=== PATIENT | female | born 1950 | race Caucasian/White ===

== ENCOUNTER 2018-05-20 13:21 | Inpatient (IN) ==
--- NOTE | 2018-05-20 13:45 | EKG Report ---
Test Performed on : 05/20/2018 1:34:59 PM Test Reason : PALPITATIONS Blood Pressure : / mmHG Vent. Rate : 117 BPM Atrial Rate : 122 BPM P-R Int : 000 ms QRS Dur : 072 ms QT Int : 336 ms P-R-T Axes : 000 013 060 degrees QTc Int : 468 ms Atrial fibrillation. with rapid ventricular response. Nonspecific T wave abnormality Abnormal ECG No previous ECGs available Unconfirmed Result
[2018-05-20] MEDS ORDERED: CARDIZEM IV ONE ×2 (14:13→14:56)
[2018-05-20 14:44] LABS: BASO# 0.02 X1000 (0.0-0.2); BASO% 0.3 % (0.0-0.8); EOS# 0.25 X1000 (0.0-0.7); EOS% 3.7 % (0.0-10.0); HEMATOCRIT 36.3 % (37.0-47.0); HEMOGLOBIN 11.5 g/dL (12.0-16.0); LYMPH% 32.9 % (20.5-51.1); MCH 23.4 PG (27-31); MCHC 31.7 g/dL (33-37); MCV 73.9 FL (81-99); MONO# 0.66 X1000 (0.11-0.59); MONO% 9.9 % (1.7-9.3); MPV 11.4 FL (7.4-10.4); NEUT# 3.55 X1000 (1.4-6.5); NEUT% 53.2 % (42.2-75.2); PLT 234 X1000 (130-400); RBC 4.91 XMIL (4.2-5.4); RDW 16.3 % (11.5-14.5); WBC 6.68 X1000 (4.8-10.8)
[2018-05-20 14:55] LABS: AGAP 11; ALB/GLOB RATIO 1.3; ALBUMIN 4.1 g/dL (3.5-5.0); ALKALINE PHOSPHATASE 110 U/L (32-104); BUN 19 mg/dL (8-22); CALCIUM 9.8 mg/dL (8.8-10.2); CHLORIDE 101 mmol/L (98-107); COSMO 276; CREATININE 0.8 mg/dL (0.5-0.9); ESTIMATED GFR > 60; GLUCOSE 94 mg/dL (70-104); GOT 36 U/L (10-30); GPT 37 U/L (10-36); POTASSIUM 4.7 mmol/L (3.5-5.1); SODIUM 137 mmol/L (136-145); TCO2 25 mmol/L (25-35); TOTAL BILIRUBIN 0.23 mg/dL (0.20-1.00); TOTAL PROTEIN 7.2 g/dL (6.3-8.3)
[2018-05-20 15:02] LABS: CK PROFILE 192 U/L (24-173)
[2018-05-20 15:19] LABS: CK INDEX 3.4 (0.0-2.5); CK-MB 6.48 ng/mL (0.0-5.0)
--- NOTE | 2018-05-20 17:22 | HISTORY AND PHYSICAL ---
HISTORY OF PRESENT ILLNESS: Ms. Nguyen was admitted on 05/20/2018. She has never been admitted here before. She reports that on Friday (today is Friday) she noticed some palpitations, really no chest pain. No shortness of breath. No diaphoresis. No arm or jaw pain, but she has a pulse oximeter, and she noticed it was irregular, so she went and saw I think Dr. Justine Mayer, and she did an EKG and found she was in atrial fibrillation/atrial flutter and sent over here to the emergency room. PAST MEDICAL HISTORY: Pretty unremarkable. They have been working up for chronic cough and wondering if she had mild asthma. She has primary hypothyroidism and apparently has gastroesophageal reflux disease. PAST SURGICAL HISTORY: Status post cholecystectomy in 1979, status post hysterectomy in 1978, status post right carpal tunnel syndrome in 1988. ALLERGIES: She is allergic to codeine which causes hallucination. FAMILY HISTORY: A lot of her family of cancer. I think it was her grandfather who of myocardial infarction. SOCIAL HISTORY: Negative for alcohol or tobacco. No illicit drugs. Her family is at the bedside. She had her , her son, and grandson. They moved from [place], I think, in the . 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 REVIEW OF SYSTEMS: General: No weight gain or loss reported. HEENT: No change in visual or hearing acuity or headaches. She has been having a chronic cough which is dry. Postnasal drainage. Neck: No neck pain or adenopathy. Respiratory: Chronic cough. No dyspnea. No paroxysmal nocturnal dyspnea. No orthopnea. Cardiovascular: No chest pain, but she did experience some palpitations, although mainly she noted the atrial fibrillation on the pulse oximeter, did not really have trouble with forceful palpitations or painful palpitations. Gastrointestinal and Genitourinary: No gross hematuria or dysuria. Neurologic: No focal complaints. Endocrinologic and hematologic: No significant history. PHYSICAL EXAMINATION: VITAL SIGNS: In the emergency room, temperature 97.7 degrees, pulse 100, respirations 24, blood pressure 154/95, O2 saturation 97% on room air. HEENT: Pupils were equal. Conjunctiva pink. NECK: No distended neck veins. Supple. No cervical adenopathy. VASCULAR: CVP less than 6 cm in the right atrium. Carotid, radial, femoral pulses 2+ and symmetrical. LUNGS: Clear anterolateral in all lung pretty. CARDIOVASCULAR: Irregular rhythm, irregular rate. PMI nondisplaced. ABDOMEN: Soft. Did not appreciate any organomegaly. No sign of ascites. No pedal edema. SKIN: Warm and dry. DIAGNOSTIC STUDIES: White count 6680, hematocrit 36 platelet count 234,000. Chemistries: Sodium 137, potassium 4.7, chloride 101, BUN 19, creatinine 0.8, blood sugar 94, AST 36, ALT was 37, alkaline phosphatase 110. CPK was 192. Troponin was less than 0.01. Albumin 4.1. TSH was 2.70. MEDICATIONS: At home, she is on esomeprazole 40 mg a day. She is on Lasix 40 mg which I think she takes as needed. Synthroid 100 mcg daily. ASSESSMENT AND PLAN: 1. New onset atrial fibrillation/atrial flutter. We will get an echo and look at her atrial size and her valvular function. I did not appreciate on exam significant mitral or aortic valve dysfunction. She has no history of left ventricular dysfunction. Does not appear to be having any cardiac ischemia. Cardiology will evaluate. I think we may go ahead and try her on some Cardizem and we will give her 30 mg of Cardizem q.6 h. and watch her on the monitor. We did check TSH, but we will check a T4 and TSH tomorrow and B12 and folate. I will check another set of cardiac enzymes, troponin and CK. We will get an EKG tonight and another one in the morning. We will not anticoagulate at this point. We will see what her echo looks like and watch her blood pressures. 2. Chronic dry cough. I think it is postnasal drip syndrome. She does not appear to have any wheezing or bronchospasm. Air and gas exchange appear to be good. 3. History of hypothyroidism. Continue her Synthroid. 4. Review of her lab. Hematocrit is 36. Electrolytes look good. She did have mild elevation of liver enzymes. It is probably worthwhile just to get a hepatitis profile, which we would check for mainly B and C. We will recheck her liver functions. We also will get a lipid profile in the morning and see what her cholesterol status is. cc: Christian Foster MD
[2018-05-20] MEDS ORDERED: ZOFRAN IV PRN (18:51)
[2018-05-20] MEDS: CARDIZEM PO SCH (20:00)
[2018-05-21] MEDS ORDERED: XANAX PO ONE (00:10)
[2018-05-21 03:38] LABS: BASO# 0.03 X1000 (0.0-0.2); BASO% 0.5 % (0.0-0.8); EOS# 0.27 X1000 (0.0-0.7); EOS% 4.3 % (0.0-10.0); HEMATOCRIT 36.3 % (37.0-47.0); HEMOGLOBIN 11.4 g/dL (12.0-16.0); IMM GRAN# 0.02 X1000 (0.0-0.04); IMM GRAN% 0.3 % (0.0-0.5); LYMPH# 2.31 X1000 (1.2-3.4); LYMPH% 36.8 % (20.5-51.1); MCH 23.2 PG (27-31); MCHC 31.4 g/dL (33-37); MCV 73.8 FL (81-99); MONO# 0.48 X1000 (0.11-0.59); MONO% 7.7 % (1.7-9.3); MPV 10.9 FL (7.4-10.4); NEUT# 3.16 X1000 (1.4-6.5); NEUT% 50.4 % (42.2-75.2); PLT 229 X1000 (130-400); RBC 4.92 XMIL (4.2-5.4); RDW 16.3 % (11.5-14.5); WBC 6.27 X1000 (4.8-10.8)
[2018-05-21] MEDS: CARDIZEM PO SCH ×5 (03:40→21:26)
[2018-05-21 03:50] LABS: AGAP 9; ALB/GLOB RATIO 1.3; ALKALINE PHOSPHATASE 107 U/L (32-104); BUN 18 mg/dL (8-22); CALCIUM 9.6 mg/dL (8.8-10.2); CHLORIDE 102 mmol/L (98-107); CHOLESTEROL 157 mg/dL (0-200); COSMO 278; CREATININE 0.9 mg/dL (0.5-0.9); ESTIMATED GFR > 60; GLUCOSE 104 mg/dL (70-104); GOT 38 U/L (10-30); GPT 37 U/L (10-36); HDL 42 mg/dL (45-65); LDL 97 mg/dL; MAGNESIUM 2.1 mg/dL (1.5-2.7); POTASSIUM 4.3 mmol/L (3.5-5.1); SODIUM 138 mmol/L (136-145); TCO2 27 mmol/L (25-35); TOTAL BILIRUBIN 0.35 mg/dL (0.20-1.00); TOTAL PROTEIN 7.1 g/dL (6.3-8.3); TRIGLYCERIDES 89 mg/dL (35-135); VLDL 18 mg/dL
[2018-05-21 04:13] LABS: CK INDEX 2.9 (0.0-2.5); CK-MB 5.33 ng/mL (0.0-5.0)
[2018-05-21] MEDS: PRILOSEC PO SCH (07:09)
--- NOTE | 2018-05-21 07:19 | Diag Imaging Result Doc PS360 ---
EXAM: CHEST-PORTABLE 05/21/2018 HISTORY: follow up TECHNIQUE: AP portable at 0531 COMMENT: There is minimal subsegmental atelectasis in the lingula. The inspiration is generally less optimal than on 01/27/2017. Otherwise there is no evidence of acute disease. IMPRESSION: Minimal subsegmental atelectasis. Electronically signed by Hubert Amos 05/21/2018 7:17 AM
--- NOTE | 2018-05-21 07:51 | EKG Report ---
Test Performed on : 05/21/2018 06:50:14 AM Test Reason : fib/flutter Blood Pressure : / mmHG Vent. Rate : 094 BPM Atrial Rate : 326 BPM P-R Int : 000 ms QRS Dur : 072 ms QT Int : 368 ms P-R-T Axes : 000 018 010 degrees QTc Int : 460 ms Atrial flutter. with variable AV block. Nonspecific T wave abnormality Abnormal ECG When compared with ECG of 20-MAY-2018 23:07, (Unconfirmed) No significant change was found Unconfirmed Result
--- NOTE | 2018-05-21 07:52 | EKG Report ---
Test Performed on : 05/20/2018 11:07:53 PM Test Reason : fib/flutter reassess Blood Pressure : / mmHG Vent. Rate : 108 BPM Atrial Rate : 315 BPM P-R Int : 000 ms QRS Dur : 078 ms QT Int : 360 ms P-R-T Axes : 000 017 036 degrees QTc Int : 482 ms Atrial flutter. with variable AV block. Nonspecific T wave abnormality Abnormal ECG When compared with ECG of 20-MAY-2018 15:41, (Unconfirmed) Nonspecific T wave abnormality, worse in Lateral leads Unconfirmed Result
--- NOTE | 2018-05-21 08:01 | EKG Report ---
Test Performed on : 05/20/2018 3:41:19 PM Test Reason : ED. NO EKG ORDER FOR MUSE Blood Pressure : / mmHG Vent. Rate : 093 BPM Atrial Rate : 330 BPM P-R Int : 000 ms QRS Dur : 068 ms QT Int : 370 ms P-R-T Axes : 089 016 014 degrees QTc Int : 460 ms Atrial flutter. with variable AV block. Abnormal ECG When compared with ECG of 20-MAY-2018 13:34, (Unconfirmed) Atrial flutter. has replaced Atrial fibrillation. Unconfirmed Result
[2018-05-21] MEDS ORDERED: ASPIRIN PO SCH (09:00)
[2018-05-21] MEDS: LOPRESSOR PO SCH ×3 (09:13→16:19)
--- NOTE | 2018-05-21 09:16 | CARDIOLOGY CONSULTATION ---
DATE: 05/21/2018 CONSULTATION REQUESTED BY: The Hospitalist Service. REASON: Patient with new onset atrial fibrillation. Uncertain duration, rapid response, symptomatic. Chief complaint: palpitations. HISTORY: Ms. Nguyen is a 67-year-old female, who was in her usual state of health up until Friday which is 2 days ago at about 10:15 in the morning. She was doing her usual activities and all of a sudden, she started feeling palpitations. This went on throughout the day. There were no associated symptoms of dizziness, dyspnea or swelling. The next day, Friday she went to see her doctor, Dr. Gila Mayer who found her to be tachycardic with an irregular pulse and EKG showed atrial fibrillation. She was referred to the emergency room department for management. In the ER, they have done blood work that shows a hemoglobin of 11.5, hematocrit 36.3, MCV of 73.9. Her BUN and creatinine normal. Her AST and ALT are slightly elevated however she has had this before. Her LDL cholesterol 97, HDL was 42, cholesterol 157, triglycerides 89. TSH was normal. A chest x-ray done initially has been reported as showing minimal subsegmental atelectasis. Her EKG in the ER shows what appears to be atrial fibrillation with rapid response. Then this morning at 6:50, she has something that looks more like coarse atrial fibrillation stimulating flutter. I do not think it is atrial flutter. At any rate, the patient feels better. She has been given Cardizem. Right now, they have put her on diltiazem, aspirin and she is awaiting some testing. She is just laying in bed, feeling comfortable. She has no further complaints. PAST HISTORY: Positive only for restless legs syndrome, hypothyroidism. Apparently she has been found to have abnormal liver function tests in the past and it seems like they have already tested her for hepatitis C which turned out to be negative. She probably has a case of fatty liver. In May 2015 she had an echocardiogram that showed normal findings, normal left ventricular ejection fraction. Abdominal ultrasound in December 2015 showed cholecystectomy, mildly prominent liver with fatty infiltration. The patient has no other major issues. No hypertension or diabetes mellitus. Her blood sugar on the multiple tests that she has had over the years has not been a major issue. All her sugars we have, at least 12 determinations of sugar in the computer and only 1 was 112 and all the others were below 104 or at 104. SURGICAL HISTORY: She had cholecystectomy, bladder suspension and hysterectomy. SOCIAL HISTORY: She has been to her for 53 years. She has 1 son. She has 3 grandchildren. She is not a smoker or drinker. FAMILY HISTORY: Both parents of cancer, mother of breast cancer with brain metastasis. Father had liver cancer. She has 2 siblings that are healthy. REVIEW OF SYSTEMS: She is generally active. She uses her stationary bicycle. She has no difficulty doing that. She can walk. She really has not had any cardiac issues or pulmonary issues or musculoskeletal complaints or hematological complaints. Previously her blood count has tested normal for MCV in 2016. Thereafter it has dropped. They have checked her iron in the past and her percent saturation when it was checked in January 2016 was a little low. She may have some component of iron deficiency anemia. Her personal history is negative for cancer and no allergies of any kind. HOME MEDICATIONS: At this time included 1. Nexium 40 daily. 2. Furosemide 40 daily as needed. 3. Levothyroxine 100 mcg daily. 4. Naprosyn 2 capsules at bedtime. 5. Pramipexole 0.25 daily. She cannot take JAMISON inhibitors or codeine. PHYSICAL EXAMINATION: Vital Signs: Blood pressure is 109/65, pulse 102,temperature 97.9 degrees, respirations 18. General: She is awake, alert, in no distress. HEENT: Unremarkable. Chest: Clear to auscultation and percussion. Heart: Sounds are irregularly irregular. Abdomen: Obese, nontender. Extremities: Show good pulses. No peripheral edema. Neurologic: Follows commands. Moves 4 extremities. IMPRESSION: 1. Patient with atrial fibrillation of new onset. Palpitations secondary to that. 2. Iron deficiency anemia. 3. Fatty liver. 4. History of hypothyroidism. 5. Restless legs syndrome. 6. The patient has also I believe obesity and she may be at risk of sleep apnea syndrome. RECOMMENDATION: At this time, I will check a number of markers including proBNP, D-dimer. I will also ask for more current iron markers. The patient should probably be considered for colonoscopy and upper endoscopy if she has not had those tests done before. The issue as to whether or not we need to give her long-term anticoagulation may conflict with GI lesions. We may have to discuss that with the Hospitalist Service. I would suggest to give her IV iron infusion and arrange for GI evaluation. Post discharge she will need to pursue sleep studies. From a Cardiology viewpoint, I would suggest to put her on combination of low- dose beta apurva and calcium blockers, to try to pursue cardioversion and then do a BRETT to determine whether or not she is at high risk of thrombotic events because it will help us to make a safe decision about withholding anticoagulation in her case if GI lesions are found. We will arrange for office follow up after discharge. At this time, I have explained to her the procedure of BRETT cardioversion, benefits, risks, complications. She understands. If she remains in atrial fibrillation by tomorrow morning we will proceed with that. cc: Tye Reyes MD MTDD
[2018-05-21 09:28] LABS: RETIC% 0.98 % (0.8-2.1); RETIC-HE 25.4 PG (28.2-36.6)
[2018-05-21] MEDS: SYNTHROID PO SCH (10:00)
[2018-05-21 10:01] LABS: PTT HEPARIN PROTOCOL 31.2 Seconds
[2018-05-21 10:10] LABS: IRON SATURATION 9 %; TIBC 433 ug/dL; TOTAL IRON 39 ug/dL (49-151); UNBOUND IRON 394 ug/dL (112-346)
--- NOTE | 2018-05-21 11:25 | Diag Imaging Result Doc PS360 ---
EXAM: CT ANGIOGRM PULMONARY ARTERIES 05/21/2018 HISTORY: elevated D dimer/atrial fibrillation TECHNIQUE: This exam was performed using automated exposure control, adjustment of mA or kV according to patient size, and/or use of iterative reconstruction technique. COMMENT: 3-D MIPS were performed. There are no previous studies available for comparison. There are no filling defects in the pulmonary arteries. The aorta is not optimally opacified however there is no evidence of dissection or aneurysm. There is a small hiatal hernia. There are no abnormal fluid collections. There are spondylotic changes in the thoracic spine without evidence of acute bony abnormality. There is platelike opacity present in the right upper lobe adjacent to the minor fissure. This may be due to fibrosis. There is some patchy air trapping. Otherwise no evidence of acute pulmonary parenchymal disease is present. IMPRESSION: No evidence of pulmonary emboli. Minimal atelectasis versus fibrosis right upper lobe. Electronically signed by Hubert Amos 05/21/2018 11:23 AM
[2018-05-21 12:39] LABS: HEPATITIS PROFILE ACUTE SEE COMMENTS
--- NOTE | 2018-05-21 15:41 | Diag Imaging Result Doc PS360 ---
EXAM: US GB < RUQ (LIMITED) 05/21/2018 HISTORY: elevated lfts TECHNIQUE: Right upper quadrant ultrasound COMMENT: The liver is hyperechoic. The visualized portions of the aorta and inferior vena cava are within normal limits. There is antegrade flow in the portal vein. The right kidney is without evidence of hydronephrosis or mass. There is no evidence of biliary dilatation the common bile duct measuring less than 4 mm. No abnormal fluid collections are present. Compared to 01/24/2016, there has been no appreciable change. The gallbladder is surgically absent. The pancreas is obscured. IMPRESSION: Hepatic steatosis. Electronically signed by Hubert Amos 05/21/2018 3:39 PM
--- NOTE | 2018-05-21 18:54 | PROGRESS NOTE ---
DATE: 05/21/2018 SUBJECTIVE: Ms. Nguyen had a pretty uneventful day. She understands that if she is still in atrial fibrillation in the morning, she will go down for esophageal cardioversion and esophageal echo. She has remained afebrile, no chest pain, and has been comfortable and breathing comfortably. No jaw or arm pain. OBJECTIVE: Vital Signs: Temperature 97.9 degrees, pulse 95, respirations 18, blood pressure 131/91. Eyes: Pupils are equal. Neck: Nondistended neck veins. Lungs: Clear in all lung pretty. Cardiovascular: Regular rate without murmur or S3. Abdomen: Soft. Skin: Warm and dry. LABS: From this morning: White count 6270, hematocrit is 36, platelet count 229,000. Her iron level is 39. Total iron binding capacity 433. O2 saturation 90%. Unsaturated iron binding was 394. ASSESSMENT AND PLAN: She does, on echocardiogram, have evidence of fatty liver and she has a mild microcytic anemia, so we do want to follow up with colonoscopy, and may want to give her some iron while she is here. Her reticulocyte count was 25. Percent reticulocyte was 0.98. REVIEW OF ORDERS: At present, she is on diltiazem 30 mg p.o. q.6 hours, aspirin 325 mg a day, Synthroid 100 mcg daily, metoprolol 12.5 mg q.8 hours, and Mirapex 0.25 mg q.8 hours for restless legs. We will continue these current medications as her blood pressures look good and heart rate looks good. cc: Christian Foster MD
--- NOTE | 2018-05-21 19:19 | ECHO REPORT ---
ORDER DATE: 05/21/2018 PROCEDURE: Echocardiogram. INDICATIONS: Patient with paroxysmal atrial fibrillation. M-MODE MEASUREMENTS: Left ventricle end diastole: 4.6 cm. Left ventricle end systole: 3.1 cm. Posterior wall: 1.2 cm. Interventricular septum: 1.2 cm. Left atrium: 4.3 cm. Aortic root: 3.4 cm. SUMMARY OF 2-DIMENSIONAL IMAGING: The study is somewhat difficult. 1. Left ventricular systolic function appears to be normal. Ejection fraction is estimated at 57%. 2. The left atrium appears to be markedly enlarged. The patient is morbidly obese. 3. The aortic valve shows normal opening of the cusps. There is mild degree of sclerosis. 4. The pulmonic valve looks normal. Color flow mapping unremarkable. 5. Mitral valve shows mild degree of regurgitation. 6. Pulsed wave Doppler of mitral inflow shows single filling wave. 7. Velocities of mitral annulus appear to be normal. 8. The tricuspid valve shows mild degree of regurgitation. 9. Pulmonary pressure is estimated at 43 to 48 mmHg. 10.There is no pericardial effusion, no mass, and no thrombus. SUMMARY: This study shows 1. Normal left ventricular systolic function with ejection fraction of 57%. 2. Moderate to significantly enlarged left atrium. 3. Mild degree of mitral and tricuspid regurgitation. 4. Pulmonary pressure 43 to 48 mmHg. Clinical correlation is recommended. cc: Tye Reyes MD
[2018-05-21 21:10] LABS: URINE SOURCE CLEAN CATCH
[2018-05-21 21:25] LABS: BILIRUBIN URINE NEGATIVE (NEGATIVE); BLOOD URINE NEGATIVE (NEGATIVE); COLOR STRAW; GLUCOSE URINE NEGATIVE (NEGATIVE); KETONE URINE NEGATIVE (NEGATIVE); LEUKOCYTES URINE NEGATIVE (NEGATIVE); NITRITE URINE NEGATIVE (NEGATIVE); PROTEIN URINE NEGATIVE (NEGATIVE); TURBIDITY URINE CLEAR (CLEAR); UR EPITHELIAL CELLS <10 /HPF (<10); URINE BACTERIA NEGATIVE /HPF; URINE RBC <10 /HPF (<10); URINE WBC <10 /HPF (<10); UROBILINOGEN URINE NORMAL (NORMAL)
[2018-05-21] MEDS: MIRAPEX PO SCH (21:31)
[2018-05-22 01:51] LABS: CK INDEX 2.5 (0.0-2.5); CK-MB 5.66 ng/mL (0.0-5.0)
[2018-05-22] MEDS: LOPRESSOR PO SCH (01:57)
[2018-05-22] MEDS: CARDIZEM PO SCH (01:58)
[2018-05-22] MEDS: MIRAPEX PO SCH ×2 (05:13→14:11)
[2018-05-22] MEDS: PRILOSEC PO SCH (06:21)
--- NOTE | 2018-05-22 08:01 | EKG Report ---
Test Performed on : 05/22/2018 02:00:57 AM Test Reason : AFIB Blood Pressure : / mmHG Vent. Rate : 071 BPM Atrial Rate : 071 BPM P-R Int : 162 ms QRS Dur : 082 ms QT Int : 430 ms P-R-T Axes : 041 013 026 degrees QTc Int : 467 ms Normal sinus rhythm. Normal ECG When compared with ECG of 21-MAY-2018 06:50, (Unconfirmed) Sinus rhythm. has replaced Atrial flutter. Nonspecific T wave abnormality, improved in Inferior leads Nonspecific T wave abnormality no longer evident in Lateral leads Unconfirmed Result
--- NOTE | 2018-05-22 08:02 | EKG Report ---
Test Performed on : 05/22/2018 07:19:14 AM Test Reason : AFIB Blood Pressure : / mmHG Vent. Rate : 068 BPM Atrial Rate : 068 BPM P-R Int : 184 ms QRS Dur : 074 ms QT Int : 448 ms P-R-T Axes : 048 019 025 degrees QTc Int : 476 ms Sinus rhythm. with premature supraventricular complexes. Otherwise normal ECG When compared with ECG of 22-MAY-2018 02:00, (Unconfirmed) premature supraventricular complexes. are now present Unconfirmed Result
--- NOTE | 2018-05-22 11:08 | PROVIDER DOCUMENTATION ---
This chart was entered by Chanda Enamorado Scribe, acting as scribe for Phyllis Dixon MD. HPI-Cardiac General - General Chief Complaint: General Adult Stated Complaint: SOB/TIGHTNESS Time Seen by Provider: 05/20/18 13:30 Source: patient, EMS (first response) Allergies/Adverse Reactions: Patient Allergies Allergy/AdvReac Type Severity Reaction Status Date / Time JAMISON Inhibitors Allergy SHORTNESS Verified 05/20/18 15:36 OF BREATH codeine Allergy Unknown Verified 05/20/18 15:35 Home Medications: Home Medication List Medication Instructions Recorded Confirmed Last Taken Type Esomeprazole Magnesium 40 mg PO DAILY 05/20/18 05/20/18 Unknown History Furosemide [Lasix] 40 mg PO PRN PRN 05/20/18 05/20/18 Unknown History Levothyroxine [Synthroid] 100 mcg PO DAILY 05/20/18 05/20/18 Unknown History Naproxen Sodium [Aleve] 2 cap PO QHS 05/20/18 05/20/18 Unknown History Pramipexole Di-HCl [Pramipexole 0.25 mg PO DAILY 05/20/18 05/20/18 Unknown History Dihydrochloride] - History of Present Illness-Cardiac Nature of Presenting Problem: 67 yowf presents to the ed via ems with new onset afib with rvr. pt c/o only feeling her heart racing and mild sob. pt on exam is nontoxic in appearance Location: reports: other (left anterior chest) Quality of Pain: reports: other (denies pain feels heart racing) Severity in ED: mild Onset/Duration: this morning Timing: still present, intermittent Context/Activities at Onset: reports: light activity Modifying Factors: improves with: nothing Palpitation Quality: fast/pounding heart beat History of arrythmia: reports: A-Fib Recent use of:: reports: caffeine Nitro Today/Relief: reports: no nitro taken today Aspirin Treatment Today: reports: 325 mg x 1, provided by ED Prior Chest Pain/Cardiac Workup: reports: no prior chest pain Associated Symptoms: reports: fatigue, shortness of breath Review of Systems - Adult - REVIEW OF SYSTEMS - ADULT Constitutional: reports: see HPIoksana. denies: chills, fever Eyes: reports: no symptoms reported Ears, Nose, Mouth & Throat: reports: no symptoms reported Cardiovascular: reports: see HPI, palpitations. denies: chest pain, syncope Respiratory: reports: no symptoms reported Gastrointestinal: denies: abdominal pain, diarrhea, nausea, vomiting Genitourinary: reports: no symptoms reported Musculoskeletal: denies: back pain, neck pain Integumentary: reports: no symptoms reported Neurological: denies: dizziness/vertigo, headache/migraines Psychiatric: reports: no symptoms reported Endocrine: reports: no symptoms reported Hematologic/Lymphatic: reports: no symptoms reported Allergic/Immunologic: reports: no symptoms reported All Other Systems: Reviewed and Negative Past History - Adult - PAST MEDICAL HISTORY-ADULT Review of Records: reports: Old Records Reviewed, Nursing Assessment Review, Medications Reviewed, Social history reviewed & non-contributory. Major Childhood Illnesses: reports: denies history Cardiovascular: denies: A-Fib Respiratory: reports: denies history Gastrointestinal: reports: denies history Obstetrical/Gynecological: reports: denies history Genitourinary: reports: denies history Musculoskeletal: reports: denies history Hand Dominance: Right Handed Neurological: reports: denies history Endocrine/Immune: reports: denies history Other Conditions: reports: denies history - PRIOR SURGERIES/PROCEDURES Surgical/Procedure History: reports: reviewed, not pertinent - IMMUNIZATION STATUS Childhood Immunizations: See Nurse Assessment Flu Vaccine: See Nurse Assessment - FAMILY HISTORY Family History: reviewed, not pertinent - SOCIAL HISTORY Smoking: denies Substance Use: denies Living Situation: family Physical Exam-General - PHYSICAL EXAM-ADULT Initial Vital Signs Reviewed: Yes - CONSTITUTIONAL General Appearance: appears well, alert, mild distress, obese - EYES Eyes: PERRL/EOMI, pink conjunctivae - HEAD, EARS, NOSE, MOUTH & THROAT HENMT: moist mucous membranes, normal ENT inspection - NECK Neck: non-tender, full range of motion, supple, normal inspection - RESPIRATORY Respiratory: chest non-tender, lungs clear, normal breath sounds - CARDIOVASCULAR Cardiovascular: normal peripheral pulses, irregularly irregular - GASTROINTESTINAL (ABDOMEN) Abdominal Exam: normal bowel sounds, non tender - LYMPHATIC Lymphatic: no adenopathy - MUSCULOSKELETAL Back Exam: normal inspection, no CVA tenderness, no vertebral tenderness Extremity: normal range of motion, non-tender, normal gait, normal inspection - SKIN Integumentary: normal color, normal turgor, warm/dry - NEUROLOGIC Neurologic: grossly normal, no motor/sensory deficits - PSYCHIATRIC Psych/Mental Status: normal mood/affect, normal thought content, normal thought process, oriented x 3 Progress - PLAN OF CARE/RESULTS Progress/Plan/Lab Results: Vital Signs - 8 hr 05/20/18 13:34 05/20/18 13:40 05/20/18 13:42 Temperature 97.7 F Pulse Rate 126 H Respiratory Rate 18 Blood Pressure 145/89 145/89 O2 Sat by Pulse Oximetry 98 98 98 05/20/18 13:50 05/20/18 14:00 05/20/18 14:10 Temperature Pulse Rate 125 H 129 H 119 H Respiratory Rate 25 H 28 H 20 Blood Pressure O2 Sat by Pulse Oximetry 97 98 97 05/20/18 14:20 05/20/18 14:29 05/20/18 14:31 Temperature Pulse Rate 125 H 117 H 117 H Respiratory Rate 23 27 H 24 Blood Pressure 133/105 130/97 O2 Sat by Pulse Oximetry 97 98 97 05/20/18 14:32 05/20/18 14:40 05/20/18 14:50 Temperature Pulse Rate 117 H 105 H 100 H Respiratory Rate 16 16 19 Blood Pressure 122/75 O2 Sat by Pulse Oximetry 97 97 96 05/20/18 15:22 05/20/18 15:28 05/20/18 15:30 Temperature Pulse Rate 103 H 105 H 103 H Respiratory Rate 36 H 26 H 20 Blood Pressure 135/90 124/87 O2 Sat by Pulse Oximetry 97 97 97 05/20/18 15:32 05/20/18 15:33 05/20/18 15:40 Temperature Pulse Rate 108 H 99 H 108 H Respiratory Rate 22 29 H 20 Blood Pressure 108/81 O2 Sat by Pulse Oximetry 97 96 97 05/20/18 15:50 05/20/18 16:00 05/20/18 16:03 Temperature Pulse Rate 97 H 103 H 105 H Respiratory Rate 23 27 H 27 H Blood Pressure 154/95 O2 Sat by Pulse Oximetry 97 97 98 05/20/18 16:10 Temperature Pulse Rate 102 H Respiratory Rate 24 Blood Pressure O2 Sat by Pulse Oximetry 97 Laboratory Results - last 24 hr 05/20/18 05/20/18 05/20/18 13:51 13:51 13:51 WBC 6.68 RBC 4.91 Hgb 11.5 L Hct 36.3 L MCV 73.9 L MCH 23.4 L MCHC 31.7 L RDW Std Deviation 16.3 H Plt Count 234 MPV 11.4 H Neut % (Auto) 53.2 Lymph % (Auto) 32.9 [place] % (Auto) 9.9 H Eos % (Auto) 3.7 Baso % (Auto) 0.3 Neut # (Auto) 3.55 Lymph # (Auto) 2.20 [place] # (Auto) 0.66 H Eos # (Auto) 0.25 Baso # (Auto) 0.02 Sodium 137 Potassium 4.7 Chloride 101 Carbon Dioxide 25 Anion Gap 11 BUN 19 Creatinine 0.8 Estimated GFR/1.73 m2 > 60 BUN/Creatinine Ratio 24 Glucose 94 Calculated Osmolality 276 Calcium 9.8 Total Bilirubin 0.23 AST 36 H ALT 37 H Alkaline Phosphatase 110 H Creatine Kinase 192 H Creatine Kinase Index 3.4 H CK-MB (CK-2) 6.48 H Troponin T < 0.010 Total Protein 7.2 Albumin 4.1 Globulin 3.1 Albumin/Globulin Ratio 1.3 TSH 05/20/18 13:51 WBC RBC Hgb Hct MCV MCH MCHC RDW Std Deviation Plt Count MPV Neut % (Auto) Lymph % (Auto) [place] % (Auto) Eos % (Auto) Baso % (Auto) Neut # (Auto) Lymph # (Auto) [place] # (Auto) Eos # (Auto) Baso # (Auto) Sodium Potassium Chloride Carbon Dioxide Anion Gap BUN Creatinine Estimated GFR/1.73 m2 BUN/Creatinine Ratio Glucose Calculated Osmolality Calcium Total Bilirubin AST ALT Alkaline Phosphatase Creatine Kinase Creatine Kinase Index CK-MB (CK-2) Troponin T Total Protein Albumin Globulin Albumin/Globulin Ratio TSH 2.70 Orders Category Date Time Status Saline Loc DIRECTED Care 05/20/18 13:35 Active NPO Diet 05/20/18 13:35 Active CBC WITH ELECTRONIC DIFF [HEME] Stat Lab 05/20/18 13:51 Completed CK PROFILE [SP CHEM] Stat Lab 05/20/18 13:51 Completed COMPREHENSIVE METABOLIC PANEL [CHEM] Stat Lab 05/20/18 13:51 Completed TROPONIN T Stat Lab 05/20/18 13:51 Completed TSH Stat Lab 05/20/18 13:51 Completed Diltiazem [Cardizem] Med 05/20/18 14:13 Discontinued 10 mg IV NOW ONE Diltiazem [Cardizem] Med 05/20/18 14:56 Discontinued 10 mg IV NOW ONE EKG [EKG] Stat Ther 05/20/18 13:35 Draft Result Diagrams: 05/20/18 13:51 05/20/18 13:51 - REASSESSMENT Reassessment #1 Time Reassessed: 15:59 (per dr dixon Heart Score 0) Status: improving - EKG 1 Time of EKG reading by physician:: 13:34 EKG Read and Signed by:: Phyllis Dixon EKG Interpretation (*Must complete 3 of following elements*): Abnormal Rate: 117 Rhythm: atrial fibrillation with rvr [place]: normal QRS: normal OR Interval: normal Comments: nonspecific T wave abnormality 2 Time of EKG reading by physician:: 15:41 EKG Read and Signed by:: Phyllis Dixon EKG Interpretation (*Must complete 3 of following elements*): Abnormal Rate: 93 Rhythm: atrial flutter with variable AV block [place]: normal QRS: normal OR Interval: normal ST Wave: normal Prior EKG Comparison: changes noted - CONSULTS/PCP/HOSPITALIST Notification #1 *Consult/PCP/Hospitalist*: dr ward service car operator Time Discussed: 16:14 (wants pt admitted overnight to hospitalist) Reason/Comments: phone consult #2 Consult: hospitalist Time Discussed: 16:16 (spoke to brayan with hospitalist service) Reason/Comments: admit to dr vazquez Consult Disposition: Admit Departure - Departure Date of Disposition Decision: 05/20/18 Time of Disposition Decision: 16:17 DIAGNOSIS: New onset atrial flutter Disposition: ADMITTED INPATIENT 09 Certified Medical Emergency: Emergent Condition: Stable Additional Freetext Instructions: ED Follow Up Instructions: You have been treated by a care provider in the Emergency Department. These instructions are being provided to you so you can have an understanding of how to care for yourself upon discharge. Upon discharge from the Emergency Depart ment, you are responsible for making arrangements for follow-up care by a physician of your choice. Take all prescribed medications as directed. Return to the Emergency Department immediately for any new or worsening symptoms. You may call the Physician Referral phone number at [phone] to obtain a list of Physicians who are taking new patients. Referrals and Follow-Ups: Justine Mayer MD [Primary Care Provider] - - Critical Care Note This patient required my direct & personal management of CC.: Yes Total Time (mins): 37 Critical Care Statement: This patient required my direct personal management to treat or rule out processes, the absence of which, could potentiallly result in sudden, clinically significant life or limb threatening deterioration. Attestation - Physician/ RACIEL Attestation Patient care was provided by Advanced Practice Provider:: No The physician spent face to face time with patient:: Yes Advanced Practice Provider documentation review:: Supervising physician onsite and consulted in the evaluation and care of this patient. The physician did have a face to face encounter with the patient. This chart was documented by the indicated scribe, (Chanda Enamorado Scribe) and accurately reflects the services I performed and decisions made by me, Phyllis Dixon MD, as attested by the provider's signature.
[2018-05-22] MEDS ORDERED: CARDIZEM CD PO SCH (13:00)
[2018-05-22] MEDS ORDERED: ELIQUIS PO SCH (13:00)
[2018-05-22] MEDS: SYNTHROID PO SCH (14:11)
--- NOTE | 2018-05-22 15:36 | DISCHARGE SUMMARY ---
ADMISSION DATE: 05/20/2018 DISCHARGE DATE: 05/22/2018 HISTORY OF PRESENT ILLNESS: This is a 67-year-old admitted on 05/20/2018. Reports that about 4 to 5 days before she had noticed some palpitations. Really denied much shortness of breath or diaphoresis, just a little bit of a fluttering feeling in her chest. Went to her primary care physician, Dr. Justine Mayer. Apparently, EKG showed atrial flutter/atrial fibrillation. The patient was admitted for new onset atrial fibrillation. PAST MEDICAL HISTORY: 1. Status post cholecystectomy in 1979. 2. Status post hysterectomy 1978. 3. Status post right carpal tunnel syndrome in 1988. HOSPITAL COURSE: She had been treated for kind of a couple weeks of dry cough. They saw no sign of cardiac ischemia. Cardiology is following. Ultrasound abdomen was done, found hepatic steatosis. Noted that she had a normocytic anemia. I wanted her to get follow up with colonoscopy, which she is planning on doing. Did an echocardiogram on 05/21/2018 with normal left ventricular systolic function, ejection fraction 57%, moderate to significantly enlarged left atrium, mild degree of mitral and tricuspid regurgitation. Pulmonary pressure is [address] Reyes for Cardiology evaluated. The patient with atrial fibrillation new onset. Plan was to do an EGD and esophageal echo and cardioversion. It was noted that she did have some iron deficiency anemia, fatty liver, history of restless legs syndrome, and hypothyroidism. Hematocrit 36, hemoglobin 11 and stable. Troponin is less than 0.01. Her iron level is 39, TIBC was 433, percent saturation 9, and ferritin was 30. She cardioverted back to sinus rhythm and did not have to have cardioversion and seemed to be stable. Blood pressure looked good so the plan was let her go home. She will be on Eliquis 5 mg b.i.d., Cardizem CD 120 mg daily, Synthroid 100 mcg daily, Lopressor 25 mg b.i.d., Mirapex 0.25 mg p.o. every 8 hours. cc: Christian Foster MD
[2018-05-22 15:39] VITALS: BP 135/75
[2018-05-22] MEDS ORDERED: LOPRESSOR PO SCH (21:00)
== END 2018-05-22 18:22 | disposition home or self-care (01) | DRG 310 ==
LOC: SUPCPDRO → ED 13:21 → EDIPHOLD 17:21 → 3N 05-21 10:23
PROVIDERS: ATTEND Emergency Medicine
CPT/HCPCS: 71010; 71045; 71275; 76705; 80053; 80061; 80074; 81001; 82378; 82550; 82553; 82607; 82728; 82746; 83540; 83550; 83735; 83880; 84439; 84443; 84484; 85025; 85045; 85379; 85610; 85651; 85730; 86140; 93005; 93010; 93306; 93312; 99285; A9270; Q9967